=== PATIENT | female | born 1990 | race African-American/Black ===

== ENCOUNTER 2022-10-07 07:56 | Day surgery (SDC) | payer MEDICAID ==
[~2022-10-07] VITALS: Ht 165.1 cm; Wt 86.2 kg
[2022-10-07 08:36] LABS: HCG,QUAL RESULT NEGATIVE (NEGATIVE)
[2022-10-07] MEDS ORDERED: DIPHENHYDRAMINE INJ 50 MG/ML VIAL ONE (09:07)
[2022-10-07] MEDS ORDERED: MIDAZOLAM HCL 5 MG/5 ML VIAL ONE (09:09)
[2022-10-07] MEDS ORDERED: fentaNYL CITRATE/PF 100 MCG/2 ML AMP ONE (09:47)
[2022-10-07] MEDS ORDERED: LIDOCAINE 2%, 20 ML MDV ONE (12:00)
[2022-10-07] MEDS ORDERED: ISOVUE-300 (IOPAMIDOL) 100 ML INFUS..BTL IV ONE (12:00)
[2022-10-07] MEDS ORDERED: NORMAL SALINE 10 ML VIAL ONE (12:00)
[2022-10-07] MEDS ORDERED: methylPREDNISolone ACETATE 40 MG/ML ONE (12:00)
[2022-10-07 16:10] VITALS: BP_SYST 124
== END 2022-10-07 11:10 | disposition home or self-care (01) ==
LOC: SDS 07:56 → SMU 07:56 → SDS 11:10
PROVIDERS: ATTEND Internal Medicine
DX: M51.16 Intervertebral disc disorders with radiculopathy, lumbar region (principal); Z79.899 Other long term (current) drug therapy; Z20.822 Contact with and (suspected) exposure to COVID-19
CPT/HCPCS: 87426; 36415; 62323; 84703; J1200; J2001; J1030; J2250; J3010; Q9967; 76000

== ENCOUNTER 2023-01-06 11:04 | Day surgery (SDC) | payer MEDICAID ==
[~2023-01-06] VITALS: Ht 165.1 cm; Wt 83.9 kg
[2023-01-06 11:31] LABS: HCG,QUAL RESULT NEGATIVE (NEGATIVE)
[2023-01-06] MEDS ORDERED: NORMAL SALINE 10 ML VIAL ONE (12:10)
[2023-01-06] MEDS ORDERED: DIPHENHYDRAMINE INJ 50 MG/ML VIAL ONE (12:10)
[2023-01-06] MEDS ORDERED: IOPAMIDOL 50 ML VIAL IV ONE (12:10)
[2023-01-06] MEDS ORDERED: LIDOCAINE 2%, 20 ML MDV ONE (12:10)
[2023-01-06] MEDS ORDERED: methylPREDNISolone ACETATE 40 MG/ML ONE (12:10)
[2023-01-06] MEDS ORDERED: fentaNYL CITRATE/PF 100 MCG/2 ML AMP ONE (12:10)
[2023-01-06] MEDS: MIDAZOLAM HCL 5 MG/5 ML VIAL ONE ×3 (14:45→14:52)
[2023-01-06 18:04] VITALS: BP_SYST 105
== END 2023-01-06 15:45 | disposition home or self-care (01) ==
LOC: SDS 11:04 → SMU 11:04 → SDS 15:45
PROVIDERS: ATTEND Internal Medicine
DX: M51.16 Intervertebral disc disorders with radiculopathy, lumbar region (principal); M47.26 Other spondylosis with radiculopathy, lumbar region; I10 Essential (primary) hypertension; Z79.899 Other long term (current) drug therapy; Z20.822 Contact with and (suspected) exposure to COVID-19
CPT/HCPCS: 62323; 87426; 84703; 36415; J1200; J2001; J1030; J2250; J3010; Q9967; 76000